=== PATIENT | male | born 1980 | race Two or more races ===

== ENCOUNTER 2024-07-12 09:13 | Outpatient (CLI) | payer OTHER ==
[2024-07-12 09:40] LABS: HEMATOCRIT 42.7 % (39.0-48.0); HEMOGLOBIN 14.3 g/dL (13-16.00); MEAN CELL VOLUME 91.9 fL (80.0-100.00); MEAN CORPUSCULAR HEMOGLOBIN 30.7 pg (27.00-32.0); MEAN CORPUSCULAR HGB CONC 33.4 g/dl (32.0-36.0); PLATELET COUNT 345 K/uL (150-450); RED BLOOD COUNT 4.65 M/uL (4.00-6.00); RED CELL DISTRIBUTION WIDTH 13.7 % (11.5-14.5)
[2024-07-12 09:47] LABS: PH,URINE 5.5 (5.0-8.0); URINE APPEARANCE Clear; URINE BILIRRUBIN Negative (NEGATIVE); URINE BLOOD Negative; URINE COLOR Yellow; URINE GLUCOSE Negative (NEGATIVE); URINE KETONE 15 (NEGATIVE); URINE LEUKOCYTE Negative; URINE NITRATE Negative; URINE PROTEIN Negative (NEGATIVE); URINE UROBILINOGEN 0.2 E.U./dl
[2024-07-12 09:52] LABS: URINE BACTERIA 18.8 uL (0.0-1933); URINE RBC 3.3 uL (0.0-20.8); URINE WBC 2.6 uL (0.0-23.2)
[2024-07-12 09:53] LABS: URINE EPITHELIAL CELLS 1.3 uL (0.0-38.8)
[2024-07-12 10:06] LABS: ERYTHROCYTE SEDIMENTATION RATE 65 mm/hr
[2024-07-12 10:53] LABS: ALBUMIN 3.9 gm/dL (3.4-5.0); BILIRUBIN TOTAL 0.59 mg/dL (0.3-1.2); CALCIUM 9.5 mg/dL (8.5-10.1); CHOL HDL RATIO 4.4 (0-5.0); CREATININE SERUM 0.96 mg/dL (0.70-1.30); GFR 86.32; GLOBULINA 4.2 G/DL (2.4-3.5); POTASSIUM 4.34 mEq/L (3.5-5.1); TOTAL PROTEIN 8.1 gm/dL (6.4-8.2)
== END 2024-07-12 09:16 | disposition home or self-care (01) ==
LOC: LAB 09:13
PROVIDERS: ATTEND Surgery
DX: I87.2 Venous insufficiency (chronic) (peripheral) (principal); E66.01 Morbid (severe) obesity due to excess calories

== ENCOUNTER 2024-07-20 08:05 | Outpatient (CLI) | payer OTHER | END 2024-07-20 08:07 | disposition home or self-care (01) | LOC: NUCLEAR 08:05 | PROVIDERS: ATTEND Surgery | DX: I87.2 Venous insufficiency (chronic) (peripheral) (principal) ==

== ENCOUNTER → 2024-08-28 07:11 | Outpatient (CLI) | payer OTHER ==
[2024-08-28 08:01] LABS: HEMATOCRIT 44.4 % (39.0-48.0); HEMOGLOBIN 14.3 g/dL (13-16.00); MEAN CELL VOLUME 93.1 fL (80.0-100.00); MEAN CORPUSCULAR HGB CONC 32.2 g/dl (32.0-36.0); RED BLOOD COUNT 4.76 M/uL (4.00-6.00); RED CELL DISTRIBUTION WIDTH 13.8 % (11.5-14.5)
[2024-08-28 08:32] LABS: PLATELET COUNT 288 K/uL (150-450)
[2024-08-28 09:16] LABS: CALCIUM 9.4 mg/dL (8.5-10.1); CHOL HDL RATIO 3.8 (0-5.0); CREATININE SERUM 0.96 mg/dL (0.70-1.30); GFR 86.32; POTASSIUM 4.33 mEq/L (3.5-5.1); PROSTATIC SPECIFIC ANTIGEN 1.21 NG/ML (0.010-4.00); T4 FREE 1.02 NG/ML (0.76-1.46); TSH 3.97 uIU/mL (0.358-3.74)
== END | disposition home or self-care (01) ==
LOC: LAB 07:11
DX: I10 Essential (primary) hypertension (principal); E78.2 Mixed hyperlipidemia; E11.42 Type 2 diabetes mellitus with diabetic polyneuropathy; Z12.5 Encounter for screening for malignant neoplasm of prostate; R73.01 Impaired fasting glucose; Z12.11 Encounter for screening for malignant neoplasm of colon

== ENCOUNTER 2024-09-05 07:41 | Outpatient (CLI) | payer OTHER ==
[2024-09-05 09:28] LABS: ob NEGATIVE (NEGATIVE)
== END 2024-09-05 07:44 | disposition home or self-care (01) ==
LOC: LAB 07:41
DX: E78.2 Mixed hyperlipidemia (principal); E11.42 Type 2 diabetes mellitus with diabetic polyneuropathy; Z12.5 Encounter for screening for malignant neoplasm of prostate; Z12.11 Encounter for screening for malignant neoplasm of colon; R73.01 Impaired fasting glucose; I10 Essential (primary) hypertension